=== PATIENT | male | born 1990 | race Caucasian/White ===

== ENCOUNTER 2023-03-10 09:37 | Emergency (ER) | payer OTHER ==
[~2023-03-10] VITALS: Ht 180.3 cm; Wt 78.1 kg
[2023-03-10 10:21] VITALS: BP 145/87; PULSE 74; RESP 18; TEMP 97; O2SAT 98
== END 2023-03-10 11:58 | disposition home or self-care (01) ==
LOC: ER 09:37 → EDBD 09:37 → ER 11:58
DX: S93.402A Sprain of unspecified ligament of left ankle, initial encounter (principal); X50.1XXA Overexertion from prolonged static or awkward postures, initial encounter; Y93.89 Activity, other specified; Y92.89 Other specified places as the place of occurrence of the external cause; Y99.8 Other external cause status
CPT/HCPCS: 73610

== ENCOUNTER 2024-06-27 19:42 | Emergency (ER) | payer OTHER ==
[~2024-06-27] VITALS: Ht 180.3 cm; Wt 84.1 kg
--- NOTE | 2024-06-27 21:12 | DVH ---
INDICATION: px/injury TECHNIQUE: 4 views of the thoracic spine were obtained. COMPARISON: None FINDINGS: There is no evidence of fracture, subluxation and/or dislocation. The alignment is anatomical. The paravertebral soft tissues were unremarkable. IMPRESSION: 1. Of the visualized spine, there is no evidence for fracture or subluxation.
[2024-06-27 22:21] VITALS: BP 147/97; PULSE 81; RESP 18; TEMP 98.4; O2SAT 97
[2024-06-27] MEDS: DexAMETHasone SOD PHOS 10MG/1ML VIAL INJ IM ONE (22:38)
[2024-06-27] MEDS: KETOROLAC TROMETH 60MG/2ML VIAL IM ONE (22:39)
--- NOTE | 2024-06-27 22:41 | ED.PDOC ---
Back pain HPI HPI Comments This is a 33-year-old male presents to the ED chief complaint mid back pain. Patient states pain started 2 days ago after bending over and lifting heavy box, he felt sudden onset of sharp shooting pain across his mid back. He describes pain as sharp shooting from left to right mid back 9/10 on pain scale. States has not tried any [id number] medications for relief measures. Denies numbness, weakness, shortness of breath, fever, chills, nausea or vomiting. Chief Complaint: Back Pain Time Seen by MD: 19:46 Primary Care Provider: TIO Reviewed Notes: Nurses Notes, Medications, Allergies Allergies: Coded Allergies: No Known Drug Allergy (Verified Allergy, Unknown, 03/10/23) Information Source: Patient Mode of Arrival: Ambulatory Past Medical History PAST MEDICAL HISTORY: Denies Family History Family History: Reviewed,noncontributory to illness Social History Smoker: Non-Smoker Alcohol: Denies ETOH Use Drugs: Denies Drug Use Constitutional: denies: chills, diaphoresis, fatigue, fever, malaise, sweats, weakness, others EENTM: denies: blurred vision, double vision, ear bleeding, ear discharge, ear drainage, ear pain, ear ringing, eye pain, eye redness, hearing loss, mouth pain, mouth swelling, nasal discharge, nose bleeding, nose congestion, nose pain, photophobia, tearing, throat pain, throat swelling, voice changes, others Respiratory: denies: cough, hemoptysis, orthopnea, SOB at rest, shortness of breath, SOB with excertion, stridor, wheezing, others Cardiovascular: denies: chest pain, dizzy spells, diaphoresis, Dyspnea on exertion, edema, irregular heart beat, left arm pain, lightheadedness, palpitations, PND, syncope, others Gastrointestinal: denies: abdomen distended, abdominal pain, blood streaked bowels, constipated, diarrhea, dysphagia, difficulty swallowing, hematemesis, melena, nausea, poor appetite, poor fluid intake, rectal bleeding, rectal pain, vomiting, others Genitourinary: denies: burning, dysuria, flank pain, frequency, hematuria, incontinence, penile discharge, penile sore, pain, testicle pain, testicle swelling, urgency, others Neurological: denies: dizziness, fainting, headache, left sided numbness, left sided weakness, numbness, paresthesia, pre-existing deficit, right sided numbness, right sided weakness, seizure, speech problems, tingling, tremors, weakness, others Musculoskeletal: reports: back pain (Mid back); denies: gout, joint pain, joint swelling, muscle pain, muscle stiffness, neck pain, others Integumetry: denies: bruises, change in color, change in hair/nails, dryness, laceration, lesions, lumps, rash, wounds, others Allergic/Immunocompromised: denies: Difficulty Healing, Frequent Infections, Hives, Itching, others Hematologic/Lymphatic: denies: anemia, blood clots, easy bleeding, easy bruising, swollen glands, others Endocrine: denies: excessive hunger, excessive sweating, excessive thirst, excessive urination, flushing, intolerance to cold, intolerance to heat, unexplained weight gain, unexplained weight loss, others Psychiatric: denies: anxiety, bipolar disorder, depression, hopeless, panic disorder, schizophrenia, sleepless, suicidal, others Physical Exam General Appearance: No Apparent Distress, Normal HEENT: Pharynx Normal Neck: Full Range of Motion, Non-Tender Respiratory: Chest Non-Tender, Lungs Clear, No Accessory Muscle Use, No Respiratory Distress, Normal Breath Sounds Cardiovascular: No Murmur, Normal Peripheral Pulses, Regular Rate/Rhythm Breast Exam: Deferred Gastrointestinal: Non Tender, Soft Genitalia: Deferred Pelvic: Deferred Rectal: Deferred Extremities: Normal capillary refill, Normal inspection, Normal range of motion, Non-tender, No pedal edema Musculoskeletal : Location: Bilateral Extremity Location: Back (Moderate tenderness palpated over T6 through T12 paraspinal muscles. No crepitus, step-offs over thoracic spine. Strength sensory and motion intact. Positive pedal pulses radial pulses) Apperance: Normal Neurologic: Alert, district court administrator II-XII nml as Tested, No Motor Deficits, Normal Affect, Normal Mood, No Sensory Deficits Cerebellar Function: Normal Reflexes: Normal Skin: Dry, Normal Color, Warm Lymphatic: No Adenopathy Was a procedure done? Was a procedure done?: No Back Pain Differential Dx Differential Diagnosis: Fracture, Musculoskeletal Pain X-Ray, Labs, Meds, VS Vital Signs Date Time Temp Pulse Resp B/P (MAP) Pulse Ox O2 Delivery O2 Flow Rate FiO2 06/27/24 22:21 81 18 97 Room Air 06/27/24 22:21 98.4 81 18 147/97 (114) 97 98.4 06/27/24 20:18 98.3 73 18 147/88 (107) 96 Current Medications Medications (Trade) Dose Ordered Sig/Paco Route Start Time Stop Time Status Last Admin Ketorolac Tromethamine (Toradol Injection) 60 mg ONCE ONCE IM 06/27/24 22:15 06/27/24 22:16 DC 06/27/24 22:39 Dexamethasone Sodium Phosphate (Decadron Injection) 10 mg ONCE ONCE IM 06/27/24 22:15 06/27/24 22:16 DC 06/27/24 22:38 X-Ray, Labs, Meds, VS Comment Thoracic spine x-ray negative for acute findings or osseous lesions. Patient was given Toradol 60 mg IM and Decadron 10 mg IM he reports improvement in pain and function requesting discharge at this time. Advised to follow up with his PCP in 2-3 days as necessary. Consider referral for physical therapy or foster care worker if symptoms continue consider further imaging such as MRI. Script tizanidine muscle relaxer and ibuprofen 800 mg. ER return precautions provided. Patient indicated understanding. Patient agrees with discharge plan of care. Time of 1ST Reevaluation: 22:35 Reevaluation 1ST: Improved Patient Education/Counseling: Diagnosis, Treatment, Prognosis, Need For Follow Up Family Education/Counseling: No Family Present Departure 1 Departure Time of Disposition: 22:36 Impression: Primary Impression: Strain of muscle and tendon of back wall of thorax, initial encounter Disposition: HOME / SELF CARE / HOMELESS Condition: Serious Discharged With: Self Critical Care Note Critical Care Time?: No Stability Stability form required: OLGA Chavez Jun 27, 2024 22:41
== END 2024-06-27 23:00 | disposition home or self-care (01) ==
LOC: ER 19:42
DX: S29.012A Strain of muscle and tendon of back wall of thorax, initial encounter (principal); X50.0XXA Overexertion from strenuous movement or load, initial encounter; Y93.89 Activity, other specified; Y92.89 Other specified places as the place of occurrence of the external cause; Y99.8 Other external cause status
CPT/HCPCS: 72070; 96372; 99284; J1100; J1885